=== PATIENT | male | born 1925 | race Caucasian/White ===

== ENCOUNTER 2017-01-10 11:17 | Emergency (ER) | payer MEDICARE ==
[~2017-01-10] VITALS: Ht 177.8 cm; Wt 83.9 kg
[~2017-01-10 11:17] MED LIST: GLIP5 PO; GLUCTAB PO; PROP1TAB PO; SIMV40 PO; SPIR25 PO; TAMS0.4C67 PO; VITA100020 PO; WARF2TAB PO
[2017-01-10 11:26] VITALS: BP 200/96; PULSE 96; RESP 15; TEMP 97.4; O2SAT 97
[2017-01-10] MEDS ORDERED: TAMS0.4C4 PO (11:52)
[2017-01-10] MEDS ORDERED: SIMV40TA PO (11:52)
[2017-01-10] MEDS ORDERED: VITA100T15 PO (11:52)
[2017-01-10] MEDS ORDERED: WARF4TAB51 PO (11:52)
[2017-01-10] MEDS ORDERED: GLIP5TAB8 PO (11:52)
[2017-01-10] MEDS ORDERED: PROS5TAB PO (11:52)
[2017-01-10] MEDS ORDERED: IBUPROFEN 200 MG TAB PO ONE (12:00)
[2017-01-10] MEDS ORDERED: HYDROcodone/IBUPROFEN 7.5MG/200MG TAB PO ONE (12:00)
--- NOTE | 2017-01-10 12:03 | PD ---
HPI Chief Complaint: Fall Time Seen by Provider: 11:51 Travel History International Travel<30 days: No Contact w/Intl Traveler<30days: No Traveled to known affect area: No History of Present Illness HPI This 89-year-old male says he fell while getting off an airplane on Saturday. He hit his back against the plain. He is having pain at the site ever since. He has been taking Tylenol without much relief of the pain. He does not smoke. He does have a history of diabetes. Pain is aggravated by deep breathing. PFSH Past Medical History Asthma: No Blood Disorders: No Heart Rhythm Problems: Yes (a fib) Cancer: No Cardiovascular Problems: No High Cholesterol: Yes Chemotherapy: No Chest Pain: No Congestive Heart Failure: No COPD: No Diabetes: Yes Patient Takes Glucophage: Yes Diminished Hearing: Yes Endocrine: Yes (diabetes) Gastrointestinal Disorders: No Glaucoma: No Genitourinary: Yes (enlarged prostate) Hepatitis: No Hiatal Hernia: No Hypertension: Yes Immune Disorder: No Implanted Vascular Access Dvce: Yes Musculoskeletal: No Neurologic: Yes (neuropathy) Psychiatric: No Reproductive: No Respiratory: No Radiation Therapy: No Sleep Apnea: No Thyroid Disease: No Tetanus Vaccination: < 5 Years Past Surgical History Body Medical Devices: pacemaker, right hip Other Surgery: Yes (hip replacement) Social History Alcohol Use: Yes (SOCIAL) Tobacco Use: No (FORMER) Substance Use: Yes Allergies-Medications (Allergen,Severity, Reaction): Coded Allergies: Penicillin (Verified Allergy, Severe, 01/10/17) PT DENIES, STATES HE HAS TAKEN Reported Meds & Prescriptions Reported Meds & Active Scripts Active Reported Warfarin 2 Mg Tab 2 Mg PO DAILY Tamsulosin (Tamsulosin HCl) 0.4 Mg Cap 0.4 Mg PO HS Simvastatin 40 Mg Tab 40 Mg PO HS Vitamin B12 (Cyanocobalamin) 100 Mcg Tab 100 Mcg PO DAILY Glipizide 5 Mg Tab 2.5 Mg PO DAILY Take 30 minutes before a meal Proscar (Finasteride) 5 Mg Tab 5 Mg PO DAILY Do not crush. Review of Systems General / Constitutional: No: Fever, Chills Eyes: No: Diploplia, Blurred Vision HENT: No: Headaches Cardiovascular: No: Chest Pain or Discomfort Respiratory: Positive: Pleuritic Pain, No: Cough, Shortness of Breath Gastrointestinal: No: Vomiting Genitourinary: No: Urgency Physical Exam Narrative GENERAL: Well-developed male SKIN: Focused skin assessment warm/dry. HEAD: Atraumatic. Normocephalic. EYES: Pupils equal and round. No scleral icterus. No injection or drainage. ENT: No nasal bleeding or discharge. Mucous membranes pink and moist. NECK: Trachea midline. No JVD. CARDIOVASCULAR: Regular rate and rhythm. No murmur appreciated. RESPIRATORY: No accessory muscle use. Clear to auscultation. Breath sounds equal bilaterally. His tenderness to palpation of the right posterior ribs GASTROINTESTINAL: Abdomen soft, non-tender, nondistended. Hepatic and splenic margins not palpable. MUSCULOSKELETAL: No obvious deformities. No clubbing. No cyanosis. No edema. NEUROLOGICAL: Awake and alert. No obvious cranial nerve deficits. Motor grossly within normal limits. Normal speech. PSYCHIATRIC: Appropriate mood and affect; insight and judgment normal. Data Data Last Documented VS Vital Signs Date Time Temp Pulse Resp B/P Pulse Ox O2 Delivery O2 Flow Rate FiO2 01/10/17 11:35 16 97 Room Air 01/10/17 11:26 97.4 96 200/96 Orders Hydrocod-Ibuprofen 7.5-200 Mg (Vicoprofe (01/10/17 12:00) Ibuprofen (Advil) (01/10/17 12:00) Ribs, Uni (W/Exp Cxr-Min 3vw) (01/10/17 12:03) Oxycodone (Roxicodone) (01/10/17 12:15) Ibuprofen (Motrin) (01/10/17 12:15) [facility] Medical Decision Making Medical Screen Exam Complete: Yes Emergency Medical Condition: Yes Medical Record Reviewed: Yes Differential Diagnosis Differential includes chest wall contusion, rib fracture, pneumothorax Narrative Course Right rib films were ordered. They've been read as negative. It does seem to be some irregularity at the medial aspect of the right ninth rib which is the site of the pain. Clinically he does have point tenderness in the localized pain consistent with a rib fracture Diagnosis Primary Impression: Rib fracture Qualified Code: S22.31XA - Closed fracture of one rib of right side, initial encounter Scripts Hydrocodone-Acetaminophen (Lortab)5-325 Mg Tab1 Tab PO Q4H PRN (PAIN) #20 TAB Ref 0 Prov:Chester Lord MD 01/10/17 Disposition: 01 DISCHARGE HOME Condition: Stable Chester Lord MD Jan 10, 2017 12:03
[2017-01-10] MEDS ORDERED: IBUPROFEN 400 MG TAB PO ONE (12:15)
--- NOTE | 2017-01-10 12:46 | RADHPO ---
EXAM DATE/TIME: 01/10/2017 12:14 [place] COMPARISON: No previous studies available for comparison. INDICATIONS : Patient fell while getting off an airplane on Saturday. MEDICAL HISTORY : None. SURGICAL HISTORY : Pacemaker. ENCOUNTER: Initial ACUITY: 2 days PAIN SCORE: 10/10 LOCATION: Right Ribs. FINDINGS: 5 views of the chest and ribs demonstrate no rib fracture or acute rib abnormality. No pneumothorax i s visualized. Left chest wall pacing device is present. CONCLUSION: No rib fracture or acute finding is identified. Timbo Song MD on January 10, 2017 at 12:42 Board Certified Radiologist. This report was verified electronically.
[2017-01-10] MEDS ORDERED: HYDR-3533 PO (12:59)
[2017-01-10 13:26] VITALS: BP_SYST 220; BP_SYST 224; BP_DIAS 111; BP_DIAS 116; PULSE 98; RESP 16; O2SAT 98
[2017-01-10] MEDS ORDERED: cloNIDine HCL 0.1 MG TAB PO ONE (13:30)
[2017-01-10] MEDS ORDERED: ONDANSETRON ODT 4 MG TAB PO ONE (13:30)
[2017-01-10 14:28] VITALS: BP 125/67
== END 2017-01-10 14:42 | disposition home or self-care (01) ==
LOC: PHED 11:17
DX: S22.31XA Fracture of one rib, right side, initial encounter for closed fracture (principal); W22.09XA Striking against other stationary object, initial encounter; Y93.89 Activity, other specified; Y92.813 Airplane as the place of occurrence of the external cause
CPT/HCPCS: 71101; 99283